=== PATIENT | female | born 1990 | race Two or more races ===

== ENCOUNTER → 2016-07-19 | Outpatient (CLI) | payer MEDICAID | END | disposition disaster alternative care site (69) | LOC: GLAB 07:45 | DX: Z36 Encounter for antenatal screening of mother (principal) ==

== ENCOUNTER 2016-08-04 22:54 | Inpatient (IN) | payer MEDICAID ==
[~2016-08-04] VITALS: Ht 157.5 cm; Wt 63.6 kg
--- NOTE | ~2016-08-04 | HP ---
PATIENT'S NAME: [facility] AGE: 26 Y [address] ROOM: [place] [id number] LOCATION: [facility] ADMIT DATE: 08/04/2016 History & Physical DISCHARGE DATE: FAMILY PHYSICIAN: Cathy Perez MD ATTENDING PHYSICIAN: Cathy Perez DATE OF SERVICE: 08/05/2016 CHIEF COMPLAINT: Abdominal pain and contractions. HISTORY OF PRESENT ILLNESS: This is a 26-year-old -0-1-1 female at 26 weeks and 3 days gestation, who presents tonight with complaints of contractions or abdominal pain. She has had no vaginal bleeding and no leakage of fluid. She states that the pain comes and goes and it is about every 5 minutes. She was about 1 cm on arrival and was having occasional contractions and then started having more frequent contractions despite IV hydration. She also states that they are increasing in intensity. PAST MEDICAL HISTORY: No chronic medical problems. PAST SURGICAL HISTORY: None. OBSTETRIC HISTORY: She has had 1 operative vaginal delivery at term with unknown birthweight. She is blood type A positive. The rest of her labs are unavailable at this time. She failed a 1 hour Glucola and passed her 3-hour Glucola. MEDICATIONS: vitamins. ALLERGIES: NO KNOWN MEDICAL ALLERGIES. SOCIAL HISTORY: No tobacco, alcohol, or drugs. She is . REVIEW OF SYSTEMS: She has pain that comes and goes, otherwise negative. She has had no vaginal bleeding, no leakage of fluid. She has had good movement. PHYSICAL EXAMINATION: PATIENT'S NAME: [facility] AGE: 26 Y [address] ROOM: [place] [address] LOCATION: [facility] ADMIT DATE: 08/04/2016 History & Physical DISCHARGE DATE: FAMILY PHYSICIAN: Cathy Perez MD ATTENDING PHYSICIAN: Cathy Perez VITAL SIGNS: Blood pressure 112/57, pulse 83, and respirations 18. She is afebrile. GENERAL: She is alert and oriented. HEART: Regular rate and rhythm. LUNGS: Clear to auscultation bilaterally. ABDOMEN: Soft, nontender, nondistended, gravid. TOCO: Contractions every 2 to 3 minutes, heart rate 140 with moderate variability and age-appropriate accelerations. An ultrasound shows an anterior placenta, no previa noted. She is breech. Estimated weight 1054 g. There is fluid noted in her cervical canal. Cervix is 1 to 2 cm with a bulging lower uterine segment. However, it is multiparous and the check is difficult. LABORATORY DATA: Hemoglobin 10.9, hematocrit 33.5, white blood cell count 8.2, platelets 215. Sodium 137, potassium 3.7, BUN 22, chloride 107, glucose 95. UA is positive for ketones, but otherwise negative. ASSESSMENT: 1. Intrauterine at 26 weeks and 3 days. 2. labor. 3. Breech PLAN: 1. Transport to [facility], Dr. Reyes. 2. Magnesium sulfate. 3. Penicillin G/group B strep culture. 4. Celestone. 5. C section if progresses through labor MD TANI PEÑALOZA/bartl /[id number] D: [id number] T: 900 HISTORY & PHYSICAL
[2016-08-04 23:52] LABS: BILIRUBIN URINE NEGATIVE (NEGATIVE); BLOOD URINE NEGATIVE /UL (NEGATIVE); COLOR URINE YELLOW (YELLOW); GLUCOSE URINE NEGATIVE (NEGATIVE); KETONE URINE 5 mg/dL (NEGATIVE); LEUKOCYTES URINE NEGATIVE /UL (NEGATIVE); NITRITE URINE NEGATIVE (NEGATIVE); PROTEIN URINE NEGATIVE (NEGATIVE); SPEC GRAVITY URINE 1.015 (1.003-1.035); TURBIDITY URINE CLEAR (CLEAR); UROBILINOGEN URINE NORMAL (NORMAL)
[2016-08-05] LABS: BASOPHIL % 0.5 %; EOSINOPHIL # 0.1 K/uL (0.0-0.5); EOSINOPHIL % 1.4 %; HEMATOCRIT 33.5 % (33.0-46.0); HEMOGLOBIN 10.9 g/dL (11.0-15.0); IMMATURE GRANULOCYTE # 0.1 K/uL (0.0-0.3); IMMATURE GRANULOCYTE % 1.3 %; LYMPHOCYTE # 2.1 K/uL (0.8-4.0); MCH 29.9 pg (27.0-34.0); MCHC 32.5 gm/dL (32.0-36.5); MONOCYTE # 0.5 K/uL (0.0-1.0); MPV 9.8 fl (9.4-12.4); NEUTROPHIL # (ANC) 5.8 K/uL (1.8-7.8); NEUTROPHIL % 66.8 %; NRBC % 0 /100WBC (0-0.00); PLATELET COUNT 215 K/uL (150-450); RBC 3.64 M/uL (3.50-5.00); RDW-CV 12.9 % (11.9-14.6); WBC 8.7 K/uL (4.0-11.0)
[2016-08-05 00:18] LABS: ALBUMIN 2.9 gm/dL (3.5-5.0); ALK PHOS 61 IU/L (33-138); ALT 14 IU/L (12-78); ANION GAP 11.7 (10.0-19.0); AST 11 IU/L (10-40); BLOOD UREA NITROGEN 7 mg/dL (6-24); CALCIUM 8.5 mg/dL (8.5-10.5); CHLORIDE 107 mMol/L (96-110); CO2 22 mMol/L (22-32); CREATININE 0.5 mg/dL (0.5-1.1); ESTIMATED GFR (MDRD EQUATION) > 60; POTASSIUM 3.7 mMol/L (3.7-5.1); SODIUM 137 mMol/L (135-145); TOTAL BILIRUBIN 0.2 mg/dL (0.0-1.5); TOTAL PROTEIN 7.1 g/dL (6.0-8.4)
== END 2016-08-05 04:55 | disposition hospice, home (50) | DRG 778 ==
LOC: GMED 22:54 → EDSTATUS 22:55 → GOBM 22:57 → GOBS 22:57 → GOBM 23:48 → GOBS 23:48 → GOBM 08-05 04:55 → GOBS 08-05 04:55
PROVIDERS: ADMIT Obstetrics & Gynecology
DX: O60.02 Preterm labor without delivery, second trimester (principal); O32.1XX0 Maternal care for breech presentation, not applicable or unspecified; Z3A.26 26 weeks gestation of pregnancy
CPT/HCPCS: G0463; J0610; J0702; J2540; J3475; J7120

== ENCOUNTER → 2016-08-05 | Outpatient (CLI) | payer MEDICAID | END | disposition disaster alternative care site (69) | LOC: GAMB 04:58 | DX: O60.02 Preterm labor without delivery, second trimester (principal); Z3A.22 22 weeks gestation of pregnancy | CPT/HCPCS: A0425; A0428 ==